=== PATIENT | female | born 1980 | race African-American/Black ===

== ENCOUNTER 2017-09-27 13:53 | Emergency (ER) | payer MEDICARE, MEDICAID ==
[2017-09-27] MEDS ORDERED: HYDROcodone/ACETAMIN 5-325 MG* 1 TAB PO ONE (14:49)
--- NOTE | 2017-09-27 14:51 | ED ---
Throat Pain/Nasal Congestion - HPI Summary HPI Summary: Patient here with right lower molar pain started last night. She reports she had an amalgam filling placed a few months ago at [facility]. She's been doing well since however admits she grinds her teeth and thinks she may have loosened or warned this filling down. She reports pain deep within the tooth which is worse with warm beverages. She also cannot chew on this side. She feels the pain radiating to her jaw. Denies fever, redness, swelling, drainage , difficult swallowing or breathing. No history of dental infection. She's been taking Tylenol with minimal relief. She takes Coumadin and cannot take NSAIDs. - History of Current Complaint Chief Complaint: EDDentalPain Time Seen by Provider: 09/27/17 14:24 Hx Obtained From: Patient, Family/Account Manager Sales Representative - partner, son - Allergies/Home Medications Allergies/Adverse Reactions: Allergies Allergy/AdvReac Type Severity Reaction Status Date / Time No Known Allergies Allergy Verified 09/27/17 14:20 Home Medications: Home Medications Treprostinil/Neb Accessories [Tyvaso Inhalation Refill Kit] 1.74 mg IH QID 09/27 [History Confirmed 09/27/17] Warfarin TAB(*) [Coumadin TAB(*)] 8 mg PO EVERY OTHER DAY 09/27/17 [History Confirmed 09/27/17] PMH/Surg Hx/FS Hx/Imm Hx Previously Healthy: Yes Endocrine/Hematology History: Reports: Hx Anticoagulant Therapy - WARFARIN as preventative Denies: Hx Blood Disorders Respiratory History: Reports: Hx Sleep Apnea - CPAP, Other Respiratory Problems/ Disorders - pulmonary HTN - takes adcirca 40mg, Letairis 10mg Denies: Hx Asthma, Hx Chronic Bronchitis, Hx Pneumonia, Hx Pulmonary Embolism GI History: Denies: Hx Gall Bladder Disease, Hx Gastroesophageal Reflux Disease Musculoskeletal History: Denies: Hx Arthritis Sensory History: Reports: Hx Contacts or Glasses Opthamlomology History: Reports: Hx Contacts or Glasses Infectious Disease History: No Infectious Disease History: Denies: Traveled Outside the [place] in Last 30 Days - Family History Known Family History: Positive: Diabetes - Social History Occupation: Employed Full-time Lives: With Family Alcohol Use: Rare Hx Substance Use: No Substance Use Type: Reports: None Hx Tobacco Use: Yes - not currently Smoking Status (MU): Former Smoker - quit 2002 Amount Used/How Often: 5-6 cigs per day x 1 year Review of Systems Constitutional: Negative Negative: Fever Positive: Dental Pain. Negative: Sore Throat, Ear Ache Cardiovascular: Negative Respiratory: Negative Gastrointestinal: Negative Positive: no symptoms reported Skin: Negative Neurological: Negative Psychological: Normal All Other Systems Reviewed And Are Negative: Yes Physical Exam Triage Information Reviewed: Yes Vital Signs On Initial Exam: Initial Vitals Temp Pulse Resp BP Pulse Ox 97.8 F 94 18 138/85 98 09/27/17 14:20 09/27/17 14:20 09/27/17 14:20 09/27/17 14:20 09/27/17 14:20 Vital Signs Reviewed: Yes Appearance: Positive: Well-Appearing, Well-Nourished, Pain Distress - moderate Skin: Positive: Warm, Skin Color Reflects Adequate Perfusion, Dry - no erythema , no ecchymosis Head/Face: Positive: Normal Head/Face Inspection Eyes: Positive: Normal, EOMI, Conjunctiva Clear ENT: Positive: Normal ENT inspection, Hearing grossly normal, Pharynx normal - mucosa moist. Negative: Nasal congestion, Trismus, Muffled voice Dental: Positive: Gross Decay/Caries @ - amalgom fillings in #30, 31 - TTP - no erythema, no edema, no drainage Neck: Positive: Supple, Nontender, No Lymphadenopathy Respiratory/Lung Sounds: Positive: Clear to Auscultation, Breath Sounds Present Cardiovascular: Positive: Normal, RRR Musculoskeletal: Positive: Normal, Strength/ROM Intact Neurological: Positive: Normal, Sensory/Motor Intact, Alert, Oriented to Person Place, Time, CN Intact II-III Psychiatric: Positive: Normal Diagnostics - Vital Signs Vital Signs Temp Pulse Resp BP Pulse Ox 09/27/17 14:20 97.8 F 94 18 138/85 98 - Laboratory Lab Statement: Any lab studies that have been ordered have been reviewed, and results considered in the medical decision making process. 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 Does not appear to have infection. Brief course of pain medication and she will f/u w/ [facility] Friday. Reviewed danger s/sx - Diagnoses Provider Diagnoses: Pain due to dental caries Discharge - Sign-Out/Discharge Documenting (check all that apply): Discharge/Admit/Transfer - Discharge Plan Condition: Stable Disposition: HOME Prescriptions: HYDROcodone/ACETAMIN 5-325 MG* [[place] 5-325 TAB*] 1 tab PO Q6H PRN #8 tab MDD 4 PRN Reason: Pain Patient Education Materials: Toothache (ED) Additional Instructions: Follow-up with [facility] Friday Stay hydrated with fluids Take pain medications as directed *If you develop fever, chills, difficulty breathing or swallowing, return to ED - Billing Disposition and Condition Condition: STABLE Disposition: HOME
[2017-09-27 15:22] VITALS: BP 137/86
== END 2017-09-27 15:21 | disposition home or self-care (01) ==
LOC: ED 13:53
DX: K02.9 Dental caries, unspecified (principal); Z79.01 Long term (current) use of anticoagulants; Z87.891 Personal history of nicotine dependence; G47.30 Sleep apnea, unspecified; I27.20 Pulmonary hypertension, unspecified
CPT/HCPCS: 99281

== ENCOUNTER 2017-09-30 10:26 | Emergency (ER) | payer MEDICARE, MEDICAID ==
[2017-09-30] MEDS ORDERED: Morphine VIAL* 4 MG/ML VIAL (1 ml vial) IV ONE (11:46)
[2017-09-30] MEDS ORDERED: PROCHLORPERAZINE INJ 5 MG/ML 2 ML VIAL IV ONE (11:47)
[2017-09-30 12:08] LABS: Hematocrit 44 % (35-47); Mean Corpuscular HGB Conc 34 g/dl (31-36); Mean Corpuscular Hemoglobin 28 pg (27-31); Mean Corpuscular Volume 82 fL (80-97); Mean Platelet Volume 8.8 um3 (7.4-10.4); Platelet Count 245 10^3/ul (150-450); Red Blood Count 5.35 10^6/ul (4.0-5.4); Red Cell Distribution Width 14 % (10.5-15); White Blood Count 10.8 10^3/ul (3.5-10.8)
[2017-09-30 12:26] LABS: INR 1.15 (0.77-1.02)
[2017-09-30 12:35] LABS: ABS Basophils 0 10^3/ul (0-0.2); ABS Eosinophils 0 10^3/ul (0-0.6); ABS Lymphocytes 1.3 10^3/ul (1.0-4.8); ABS Monocytes 1.2 10^3/ul (0-0.8); ABS Neutrophils 8.3 10^3/ul (1.5-7.7); ABS Nucleated RBC 0 10^3/ul; Eosinophil % 0.2 % (0-6); Lymphocyte % 11.6 % (25-47); Nucleated Red Blood Cells % 0.1
[2017-09-30 12:37] LABS: EGFR Non-African American 96.8 (>60)
[2017-09-30] MEDS ORDERED: Clindamycin 600 MG IVPREMIX(* 600 MG/50 ML SDV IV ONE (12:55)
[2017-09-30] MEDS ORDERED: Iohexol 300* (CONTRAST) 10 ML SDV IV ONE (13:01)
--- NOTE | 2017-09-30 13:37 | RAD ---
indication: Right lower face swelling in a woman with a "toothache" COMPARISON: None A CT scan of the maxillofacial bones was performed without intravenous contrast enhancement. Contiguous axial sections were obtained from the level of the hyoid bone to just above the frontal sinuses. Findings: There is subcutaneous induration and thickening overlying the right mandible. Immediately adjacent to the mandible there is a low-attenuation focus measuring 7 x 17 mm in the axial plane (image 23) and 17 mm in the cephalocaudal projection. This is relatively hypoattenuating but does not exhibit fluid density on Hounsfield unit measurements. Adjacent to the angle of the mandible there is an asymmetrically enlarged lymph node measuring 1.1 x 2.1 cm in the axial plane relative to the contralateral side. Immediately inferior to the root of the right posterior molar is a 5 mm lucency (axial image 18 and coronal image 37). Which could be a dental caries in this clinical situation. There is no displaced fracture or dislocation. The orbital rim is intact. Bilaterally the nasal bones are intact. The zygomatic arch is intact. The pterygoid plates are intact. Orbits: The globes are round. The optic nerves are symmetric. The extraocular musculature is normal. There is no post septal or intraconal inflammatory change. There is no retrobulbar hematoma. Paranasal Sinuses: The paranasal sinuses are clear. Visualized brain: The limited views of the brain do not demonstrate any acute abnormality or extra-axial hemorrhage. IMPRESSION: CT findings are consistent with soft tissue swelling surrounding the right mandible with a phlegmonous collection adjacent to the lateral aspect of the angle of the mandible but no definite drainable fluid collection. Correlation to direct visualization/ dental examination is advised.
[2017-09-30] MEDS ORDERED: Lidocaine 2% VISCOUS* 15 ML UDC PO ONE (14:35)
--- NOTE | 2017-09-30 16:25 | ED ---
Throat Pain/Nasal Congestion - HPI Summary HPI Summary: Pt returns w/ Rt sided facial swelling despite clindamycin x 1 day. Started to swell 2 days ago - saw dentist who started clinda yestrerdat. Pt saw PCP this morning who refrred her back here. Denies fever, chills, difficulty breathing or swallowing. - History of Current Complaint Chief Complaint: EDDentalPain Time Seen by Provider: 09/30/17 11:07 Hx Obtained From: Patient - Allergies/Home Medications Allergies/Adverse Reactions: Allergies Allergy/AdvReac Type Severity Reaction Status Date / Time No Known Allergies Allergy Verified 09/30/17 10:43 Home Medications: Home Medications Clindamycin Cap(NF) [Clindamycin Cap 300 mg Cap(NF)] 300 mg PO QID 09/30/17 [ History Confirmed 09/30/17] Fluconazole 100 MG TAB* [Diflucan 100 MG TAB*] 500 mg PO Q8H PRN 09/30/17 [ History Confirmed 09/30/17] PMH/Surg Hx/FS Hx/Imm Hx Endocrine/Hematology History: Reports: Hx Anticoagulant Therapy - WARFARIN as preventative Denies: Hx Blood Disorders, Hx Diabetes Cardiovascular History: Denies: Hx Hypertension Respiratory History: Reports: Hx Sleep Apnea - CPAP, Other Respiratory Problems/ Disorders - pulmonary HTN - takes adcirca 40mg, Letairis 10mg Denies: Hx Asthma, Hx Chronic Bronchitis, Hx Pneumonia, Hx Pulmonary Embolism GI History: Denies: Hx Gall Bladder Disease, Hx Gastroesophageal Reflux Disease History: Denies: Hx Renal Disease Musculoskeletal History: Denies: Hx Arthritis Sensory History: Reports: Hx Contacts or Glasses Opthamlomology History: Reports: Hx Contacts or Glasses Infectious Disease History: No Infectious Disease History: Denies: Traveled Outside the [place] in Last 30 Days - Family History Known Family History: Positive: Diabetes - Social History Alcohol Use: Rare Hx Substance Use: No Substance Use Type: Reports: None Hx Tobacco Use: Yes - not currently Smoking Status (MU): Former Smoker Amount Used/How Often: 5-6 cigs per day x 1 year Physical Exam Vital Signs On Initial Exam: Initial Vitals Temp Pulse Resp BP Pulse Ox 98 F 105 16 122/85 99 09/30/17 10:40 09/30/17 10:40 09/30/17 10:40 09/30/17 10:40 09/30/17 10:40 Diagnostics - Vital Signs Vital Signs Temp Pulse Resp BP Pulse Ox 09/30/17 15:06 90 111/78 95 09/30/17 15:00 94 94 09/30/17 14:36 109 127/86 97 09/30/17 14:06 103 115/80 94 09/30/17 14:00 93 94 09/30/17 13:36 83 119/77 94 09/30/17 13:00 79 91 09/30/17 12:36 87 117/77 95 09/30/17 12:06 100 110/77 96 09/30/17 12:00 16 09/30/17 10:40 98 F 105 16 122/85 99 - Laboratory Lab Results: Lab Results 09/30/17 09/30/17 09/30/17 Range/Units 11:48 11:48 11:48 WBC 10.8 (3.5-10.8) 10^3/ul RBC 5.35 (4.0-5.4) 10^6/ul Hgb 15.0 (12.0-16.0) g/dl Hct 44 (35-47) % MCV 82 (80-97) fL MCH 28 (27-31) pg MCHC 34 (31-36) g/dl RDW 14 (10.5-15) % Plt Count 245 (150-450) 10^3/ul MPV 8.8 (7.4-10.4) um3 Neut % (Auto) 77.1 (38-83) % Lymph % (Auto) 11.6 L (25-47) % [place] % (Auto) 10.7 H (0-7) % Eos % (Auto) 0.2 (0-6) % Baso % (Auto) 0.4 (0-2) % Absolute Neuts (auto) 8.3 H (1.5-7.7) 10^3/ul Absolute Lymphs (auto) 1.3 (1.0-4.8) 10^3/ul Absolute Monos (auto) 1.2 H (0-0.8) 10^3/ul Absolute Eos (auto) 0 (0-0.6) 10^3/ul Absolute Basos (auto) 0 (0-0.2) 10^3/ul Absolute Nucleated RBC 0 10^3/ul Nucleated RBC % 0.1 Giant Platelets Present INR (Anticoag Therapy) (0.77-1.02) Sodium 136 L (139-145) mmol/L Potassium 3.8 (3.5-5.0) mmol/L Chloride 102 (101-111) mmol/L Carbon Dioxide 26 (22-32) mmol/L Anion Gap 8 (2-11) mmol/L BUN 8 (6-24) mg/dL Creatinine 0.68 (0.51-0.95) mg/dL Est GFR ( Amer) 124.5 (>60) Est GFR (Non-Af Amer) 96.8 (>60) BUN/Creatinine Ratio 11.8 (8-20) Glucose 109 H (70-100) mg/dL Lactic Acid 1.0 (0.5-2.0) mmol/L Calcium 9.7 (8.6-10.3) mg/dL Total Bilirubin 1.30 H (0.2-1.0) mg/dL AST 14 (13-39) U/L ALT 11 (7-52) U/L Alkaline Phosphatase 55 (34-104) U/L C-Reactive Protein 116.46 H (< 5.00) mg/L Total Protein 7.7 (6.4-8.9) g/dL Albumin 4.3 (3.2-5.2) g/dL Globulin 3.4 (2-4) g/dL Albumin/Globulin Ratio 1.3 (1-3) /09/12 Range/Units 11:49 WBC (3.5-10.8) 10^3/ul RBC (4.0-5.4) 10^6/ul Hgb (12.0-16.0) g/dl Hct (35-47) % MCV (80-97) fL MCH (27-31) pg MCHC (31-36) g/dl RDW (10.5-15) % Plt Count (150-450) 10^3/ul MPV (7.4-10.4) um3 Neut % (Auto) (38-83) % Lymph % (Auto) (25-47) % [place] % (Auto) (0-7) % Eos % (Auto) (0-6) % Baso % (Auto) (0-2) % Absolute Neuts (auto) (1.5-7.7) 10^3/ul Absolute Lymphs (auto) (1.0-4.8) 10^3/ul Absolute Monos (auto) (0-0.8) 10^3/ul Absolute Eos (auto) (0-0.6) 10^3/ul Absolute Basos (auto) (0-0.2) 10^3/ul Absolute Nucleated RBC 10^3/ul Nucleated RBC % Giant Platelets INR (Anticoag Therapy) 1.15 H (0.77-1.02) Sodium (139-145) mmol/L Potassium (3.5-5.0) mmol/L Chloride (101-111) mmol/L Carbon Dioxide (22-32) mmol/L Anion Gap (2-11) mmol/L BUN (6-24) mg/dL Creatinine (0.51-0.95) mg/dL Est GFR ( Amer) (>60) Est GFR (Non-Af Amer) (>60) BUN/Creatinine Ratio (8-20) Glucose (70-100) mg/dL Lactic Acid (0.5-2.0) mmol/L Calcium (8.6-10.3) mg/dL Total Bilirubin (0.2-1.0) mg/dL AST (13-39) U/L ALT (7-52) U/L Alkaline Phosphatase (34-104) U/L C-Reactive Protein (< 5.00) mg/L Total Protein (6.4-8.9) g/dL Albumin (3.2-5.2) g/dL Globulin (2-4) g/dL Albumin/Globulin Ratio (1-3) Result Diagrams: 09/30/17 11:48 09/30/17 11:48 Lab Statement: Any lab studies that have been ordered have been reviewed, and results considered in the medical decision making process. Discharge - Sign-Out/Discharge Documenting (check all that apply): Discharge/Admit/Transfer - Discharge Plan Condition: Stable Disposition: HOME Patient Education Materials: Dental Abscess (ED) Referrals: Ayush Hollingsworth MD [Primary Care Provider] - Additional Instructions: Continue to implement oral rinses multiple times throughout the day to encourage wound to stay open and drain. You may also apply heat to the side of your face to encourage drainage. Continue anti-inflammatories and [place] for pain control. Continue antibiotic as well. Take a probiotic in between doses to prevent yeast infection or diarrhea. Follow-up with your dentist this week for extraction of tooth as this may be the root cause of your issue. - Billing Disposition and Condition Condition: STABLE Disposition: Home
[2017-09-30 16:31] VITALS: BP 134/95
== END 2017-09-30 16:29 | disposition home or self-care (01) ==
LOC: ED 10:26
DX: R22.0 Localized swelling, mass and lump, head (principal); Z87.891 Personal history of nicotine dependence
CPT/HCPCS: 36415; 70487; 80053; 83605; 85025; 85610; 86140; 96374; 96375; 99282; J0780; J2270; Q9967